=== PATIENT | male | born 1940 | race Caucasian/White ===

== ENCOUNTER 2025-06-03 11:54 | Emergency (ER) | payer MEDICARE, SELFPAY ==
[2025-06-03] VITALS (26 sets, daily range): BP systolic 132–165; BP diastolic 59–84; PULSE 89–125; RESP 13–30; TEMP 36.4; O2SAT 94–100
--- NOTE | ~2025-06-03 | CT_ITS ---
EXAMINATION: CTA chest DATE: 06/03/2025 15:29 INDICATION: Chest tightness. TECHNIQUE: Computed tomographic angiography (CTA) of the chest was performed with 100 mL Omnipaque-350 intravenous contrast. Automated exposure control and iterative reconstruction technique were employed. The dose-length product was 490.08 mGy-cm. Maximum intensity projection 3D-reconstructions of the aorta and other arteries were constructed by the technologist on a separate workstation. COMPARISON: None. FINDINGS: There is mild emphysema. There is mild atelectasis bilaterally. No pleural effusion. The heart size is normal. There are coronary artery calcifications. No pericardial effusion. Aortic atherosclerosis is noted. There is ectasia of ascending aorta measuring 4.5 cm. There is a 4.5 cm fusiform a neurysm of descending thoracic aorta. There is a 4.3 cm fusiform aneurysm of infrarenal aorta. There is no pulmonary embolus. There is bilateral gynecomastia. There are gallstones in the gallbladder, which is normal in size. There is severe atrophy of right kidney. There are cysts in the kidneys measur ing up to 4.2 cm on the left. There is mild chronic anterior wedging of multiple vertebral bodies. There are bridging endplate osteophytes at multiple levels in the spine, consistent with diffuse idiopathic skeletal hyperostosis (DISH). IMPRESSION: 1. 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 2. 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 Reviewed, dictated and finalized at location E.
--- NOTE | ~2025-06-03 | XR_ITS ---
Examination: XR chest 2V Clinical History: CHEST TIGHTNESS SINCE 2AM THIS MORNING Comparison: None Technique: PA and Lateral Findings: Cardiomediastinal silhouette normal size and configuration. Lungs clear. No acute bony abnormality. IMPRESSION: 1. No acute cardiopulmonary findings. Reviewed, dictated and finalized at location R.
--- NOTE | 2025-06-03 11:56 | ECG_ITS ---
Test Date: 2025-06-03 12:03:34 Measurements Intervals [place] Rate: 96 P: 32 GA: 191 QRS: 7 QRSD: 98 T: 52 QT: 330 QTc: 418 Interpretive Statements SINUS RHYTHM WITH OCCASIONAL SUPRAVENTRICULAR PREMATURE COMPLEXES BORDERLINE R WAVE PROGRESSION, ANTERIOR LEADS BASELINE ARTIFACT- I, II, III, AVR, AVL, AVF BORDERLINE ECG No previous ECG available for comparison Electronically Signed On 06-03-2025 16:44:25 CDT by Roman Vasquez D.O.
--- OUTSIDE RECORDS SUMMARY | 2025-06-03 11:56 | XMS_ITS | Clinical Summary ---
Author Organization [facility] Address [address] [place] [phone] Phone Care Team Providers Care Changeover Operator Name Role Phone Juliocesar Hinojosa MD Primary Care Provider [phone] Allergies No known active allergies Medications atorvastatin (LIPITOR) 80 MG tablet 3 9 Active amLODIPine (NORVASC) 10 MG tablet 1 9 Active aspirin 81 MG chewable tablet CHEW AND SWALLOW 1 TABLET(81 MG) BY MOUTH DAILY 8 Active carvedilol (COREG) 6.25 MG tablet TK 1 T PO BID. THIS IS REPLACING METOPROLOL. 0 9 Active tamsulosin (FLOMAX) 0.4 MG 24 hr capsule Take 0.4 mg by mouth 1 (one) time each day 1 Active Active Problems Problem Noted Date Diagnosed Date Chronic kidney disease, stage 3 (moderate) 07/24 Hypertensive chronic kidney disease with stage 1 through stage 4 chronic kidney disease, or unspecified chronic kidney disease 07/24/2018 Mixed hyperlipidemia 07/24/2018 Abdominal aortic aneurysm without rupture 2017 Other abnormal glucose 07/24/2018 Other acute kidney failure 07/24/2018 Coronary arteriosclerosis in [place] artery 06/30 Dyslipidemia 06/30/2018 Mitral valve regurgitation 06/30/2018 Stented coronary artery 06/30/2018 Serum creatinine raised 05/28/2018 Overview (12/18/2020): Last Assessment & Plan: -per [facility] records; pre cath creatinine was 1.3 -Creatinine here 1.31-->1.34--> 1.47-->1.63 today -Likely in the setting of contrast loading during caths -encourage PO intake and hydration -avoid nephrotoxic agents, NSAIDs; do not initiate ACEI Acute ST segment elevation myocardial infarction 05/27/2018 Overview (03/12/2019): Last Assessment & Plan: -Status post balloon angioplasty to the OM that was c/b wire dissection. Repeat cath revealed widely patent OM with no residual stenosis and no other significant lesion requiring intervention; - Trop was 64.74 on admission. -Hep gtt was discontinued today at noon after completion of 48 hours -continue DAPT with ASA 81 mg and ticagrelor 90mg BID (transitioned from cangrelor gtt in the CCU ). - continue high intensity Atorvastatin 80mg daily - BB and ACEi were held 2/2 to bradycardia and possible LIAM in the CCU but metop 6.25 BID started on the floor. -start ACEI once creatinine normalizes -patient can get TTE on his outpatient follow up with his health screener in a week Essential hypertension 05/27/2018 Overview (03/12/2019): Last Assessment & Plan: -continue amlodipine 10mg daily (home dose 7.5 daily) -continue metop 6.25 BID -start ACEi once renal function normalizes; can be started by outpatient health screener Immunizations Immunization Administration Dates Next Due Sars-cov-2, Unspecified 06/04/2021,12/03/2020, Family History Medical History Relation Comments Diabetes mellitus Mother Heart failure Mother Hypertensive disorder Mother Malignant neoplastic disease Mother Kidney disease Neg Hx Kidney stone Neg Hx Relation Status Comments Mother Social History Tobacco Use Types Packs/Day Years Used Date Smoking Tobacco: Former Smokeless Tobacco: Never Comments:Smoking History Pac ks/day: quit - in 1987, < 1 ppd x 20 years Alcohol Use Standard Drinks/Week Comments Yes 0 (1 standard drink = 0.6 oz pur e alcohol) AUDIT-C Answer Date Recorded Frequency of Alcohol Consumption Not on file 11/15/2018 Average Number of Drinks Not on file 019 Frequency of Binge Drinking Daily or almost mercedes y 11/15/2018 Sex and Gender Information Value Date Recorded Sex Assigned at Not on file Legal Sex Male 9:28 AM MST Gender Identity Not on file Sexual Orientation Not on file Last Filed Vital Signs Vital Sign Reading Time Taken Comments Blood Pressure 132/72 06/03/2022 8:39 AM CDT Pulse - - Temperature 36.6 C (97.8 F) 06/03/2022 8:39 AM CDT Respiratory Rate 18 06/03/2022 8:39 AM CDT Oxygen Saturation - - Inhaled Oxygen Concentration - - Weight 102 kg (224 lb) 06/03/2022 8:39 AM CDT Height 190.5 cm (6' 3) 06/03/2022 8:39 AM CDT Body Mass Index 28 06/03/2022 8:39 AM CDT Plan of Treatment Health Maintenance Due Date Last Done Comments Pneumococcal PPSV23/PCV13 65 + Years / Low and Medium Risk (1 of 2 - PCV) 12/17/1991 Influenza Vaccine (#1) 2025 Insurance [facility] MEDICARE Care Teams Changeover Operator Relationship Specialty Start Date End Date Juliocesar Hinojosa MD [address] [place] [phone] PCP - General Family Medicine 11/15/18
--- OUTSIDE RECORDS SUMMARY | 2025-06-03 11:56 | XMS_ITS | Clinical Summary ---
Author Organization [facility] Address [address] [place] [address] Care Team Providers Care Surplus Property Disposal Agent Name Role Phone Juliocesar Burdick MD Primary Care Prov ider Allergies No known active allergies Medications aspirin 81 mg chewable tablet CHEW AND SWALLOW 1 TABLET(81 MG) BY MOUTH DAILY 30 tablet 5 8 Active carvediloL (COREG) 6.25 mg tablet TAKE 1 TABLET BY MOUTH TWICE DAILY. THIS IS REPLACING METOPROLOL. 1 Active tamsulosin (FLOMAX) 0.4 mg extended release capsule Take 1 capsule (0.4 mg total) by mouth daily 1 Active finasteride (PROSCAR) 5 mg tablet Take 1 tablet (5 mg total) by mouth daily 3 Active multivitamin tabletIndicatio ns:Vitamin Deficiency Prevention Take 1 tablet by mouth daily Active atorvastatin (LIPITOR) 80 mg tablet TAKE 1 TABLET(80 MG) BY MOUTH DAILY 90 tablet 3 5 Active amLODIPine (NORVASC) 10 mg tablet TAKE 1 TABLET(10 MG) BY MOUTH DAILY 90 tablet 3 5 Active Active Problems Problem Noted Date Diagnosed Date Coronary artery disease invo lving [place] coronary artery of [place] heart without angina pectoris 06/30/2018 Mitral valve insufficiency 06/30/2018 Presence of stent in coronary artery 06/30/2018 Dyslipidemia 06/30/2018 Elevated serum creatinine 05/28/2018 Assessment & Plan (05/29/2018 1:12 PM CDT): -[facility] records; pre cath creatinine was 1.3 -Creatinine here 1.31-->1.34--> 1.47-->1.63 today -Likely in the setting of contrast loading during caths -encourage PO intake and hydration -avoid nephrotoxic agents, NSAIDs; do not initiate ACEI Assessment & Plan (05/28/2018 1:36 PM CDT): -Unclear baseline; prior records with no mention of kidney disease -Creatinine here 1.31-->1.34--> 1.47 today -Likely in the setting of contrast loading during caths -Adequate hydration with IVF at 30ml/hr -encourage PO intake -avoid nephrotoxic agents; hold ACEi ST elevation myocardial infa rction involving left circumflex coronary artery 05/27/2018 Assessment & Plan (05/29/2018 1:08 PM CDT): -Status post balloon angioplasty to the OM [...] on his outpatient follow up with his employment services director in a week Assessment & Plan (05/28/2018 1:28 PM CDT): -Status post balloon angioplasty to the OM that was c/b wire dissection. Repeat cath revealed widely patent OM with no residual stenosis and no other significant lesion requiring intervention; - Trop was 64.74 on admission. -Hep gtt was discontinued this AM -continue DAPT with ASA 81 mg and ticagrelor 90mg BID (transitioned from cangrelor gtt in the CCU ). - continue high intensity Atorvastatin 80mg daily - BB and ACEi were held 2/2 to bradycardia and possible LIAM. -consider start metop 6.25 BID -start ACEI once creatinine normalizes -f/u TTE Assessment & Plan (05/28/2018 6:26 AM CDT): STEMI with CELESTINA in II, III, aVF, V5, V6. At OSH, loaded with ASA and ticagrelor, taken to [facility] for balloon angioplasty c/b dissection of OM. On repeat LHC at [facility], OM found to be patent, no additional intervention performed. No stents placed. - heparin gtt for 48 hrs - DAPT with aspirin and ticagrelor - Atorvastatin 80 - start low dose metop once bradycardia resolves Essential hypertension 05/27/2018 Assessment & Plan (05/29/2018 1:10 PM CDT): -continue amlodipine 10mg daily (home dose 7.5 daily) -continue metop 6.25 BID -start ACEi once renal function normalizes; can be started by outpatient employment services director Assessment & Plan (05/28/2018 2:56 PM CDT): -Takes amlodipine 7.5mg daily -started on amlodipine 10mg daily -start low dose metop or coreg -start ACEi once renal function normalizes Assessment & Plan (05/27/2018 5:23 PM CDT): Pt measured BP at home this AM 184/80 at onset of CP. Home regimen is amlodipine 7.5mg daily. - start amlodipine 10 - consider hydralizine for short term BP management - Unclear b/l Cr, pt would benefit from ACEi--> will trend Cr Surgical History Surgery Date Site/Laterality Comments REVISION TOTAL HIP ARTHROPLASTY 08/23/2013 - 08/22/2014 Left CATARACT EXTRACTION 08/23/2014 - 08/22/2015 Bilateral TONSILLECTOMY JOINT REPLACEMENT hip replacement February 2014 Medical History Medical History Date Comments Hypertension Hypertension Peripheral vascular disease Daniela pheral vascular disease Hx Other Medical DJD Family History Medical History Relation Name Comments Diabetes Daughter Nikkie Decker Heart attack Daughter Nikkie Decker Heart failure Father Congestive Hea rt Failure; Cause of : Congestive Heart Failure Heart failure Mother Congestive Hea rt Failure; Cause of : Congestive Heart Failure Relation Name Status Comments Daughter Nikkie Decker Father Mother Social History Tobacco Use Types Packs/Day Years Used Date Smoking Tobacco: Former Cigarettes 1 25 Smokeless Tobacco: Never Tobacco Cessation:Counseling Given: Not Answered Alcohol Use Standard Drinks/Week Comments Yes 6 (1 standard drink = 0.6 oz pur e alcohol) Drinks Natural Light Sex and Gender Information Value Date Recorded Sex Assigned at Not on file Legal Sex Male 9:37 PM REGISTERED NURSES Gender Identity Male 10/29/2020 4:07 PM REGISTERED NURSES Sexual Orientation Choose not to disclose 2020 4:07 PM REGISTERED NURSES Obstetrics History Last Filed Vital Signs Vital Sign Reading Time Taken Comments Blood Pressure 134/64 12/01/2024 1:06 PM CDT Pulse 98 12/01/2024 1:06 PM CDT Temperature 37 C (98.6 F) 05/29/2018 11:46 AM CDT Respiratory Rate 18 05/29/2018 11:46 AM CDT Oxygen Saturation 98% 12/01/2024 1:06 PM CDT Inhaled Oxygen Concentration - - Weight 100.7 kg (222 lb) 12/01/2024 1:06 PM CDT Height 188 cm (6' 2) 12/01/2024 1:06 PM CDT Body Mass Index 28.5 12/01/2024 1:06 PM CDT Plan of Treatment Health Maintenance Due Date Last Done Comments Depression Screening 1941 Fall Risk Assessment 1940 DTaP/Tdap/Td Vaccine (1 - Tdap) 1952 Hepatitis B Screening 12/17/1959 Pneumococcal vaccine 65+ (1 of 1 - PCV) 12/17/1991 Zoster Vaccine (1 of 2) 12/17/1991 Well Visit 65+ 2006 Influenza Vaccine (#1) 2025 Insurance [employer] MEDICARE [facility] MEDICARE ADVANTAGE REPLACED BY [facility] MEDICARE Advance Directives For more information, please contact: [phone] * Full Code (Latest Code Status on File) Date Activated Date Inactivated Comments 05/27/2018 12:57 PM 05/29/2018 7:07 PM * Full Code Date Activated Date Inactivated Comments 05/27/2018 12:24 PM 05/27/2018 12:57 PM Care Teams Surplus Property Disposal Agent Relationship Specialty Start Date End Date Juliocesar Burdick MD PCP - General Family Medicine 06/01/18
[2025-06-03 12:15] LABS: Hematocrit 40.8 % (42.0-52.0); Hemoglobin 13.8 g/dL (14.0-18.0); Immature Granulocyte Percent A 0.4 % (0-0.5); Lymphocytes Absolute Auto 1.07 K/mm3 (0.9-3.2); Mean Corpuscular HGB Conc 33.8 g/dl (32-36); Mean Corpuscular Hemoglobin 31.4 pg (26-34); Mean Corpuscular Volume 92.9 fl (80-100); Nucleated Red Blood Cells Absolute Auto 0.000 K/mm3 (0.0-0.012); Nucleated Red Blood Cells Perc 0.0 % (0.0-0.2); Platelet Count Result 229 k/mm3 (150-375); Red Blood Count 4.39 M/mm3 (4.6-6.20); White Blood Count 12.9 K/mm3 (4.5-10.0)
[2025-06-03 12:28] LABS: INR 1.0; Prothrombin Time 13.7 Seconds (11.1-14.7)
[2025-06-03 12:29] LABS: Partial Thromboplastin Time 28.9 Seconds (22.3-36.8)
[2025-06-03 12:34] LABS: Alanine Aminotransferase 15 U/L (6-50); Albumin Level 4.1 g/dL (3.5-5.1); Alkaline Phosphatase 110 U/L (38-126); Anion Gap 11 mmol/L (4-12); Aspartate Amino Transferase 25 U/L (17-59); Bilirubin,Total 0.9 mg/dL (0.2-1.3); Blood Urea Nitrogen 16 mg/dL (9-20); Calcium 8.9 mg/dL (8.4-10.2); Carbon Dioxide 22 mmol/L (22-30); Chloride 98 mmol/L (98-107); Estimated CRCL calculation 36 ml/min; Estimated Glomerular Filt Rate 40; Glucose 127 mg/dL (65-110); Lipase 70 U/L (23-300); Potassium 3.9 mmol/L (3.4-5.0); Sodium 131 mmol/L (137-145); Total Protein 7.7 g/dL (6.3-8.2)
[2025-06-03 12:40] LABS: Troponin I < 0.012 ng/mL (0.000-0.034)
--- OUTSIDE RECORDS SUMMARY | 2025-06-03 14:24 | XMS_ITS | Clinical Summary ---
Author Organization [facility] Address [address] [place] [phone] Phone Care Team Providers Care Training Intern Name Role Phone Juliocesar Hinojosa MD Primary Care Provider [phone]- [phone] Allergies No known active allergies Medications atorvastatin [...] acute kidney failure 07/24/2018 Coronary arteriosclerosis in [place] artery 06/30 Dyslipidemia 06/30/2018 Mitral valve regurgitation [...] on his outpatient follow up with his torch shearer in a week Essential hypertension 05/27/2018 Overview (03/12/2019): Last Assessment & Plan: -continue amlodipine 10mg daily (home dose 7.5 daily) -continue metop 6.25 BID -start ACEi once renal function normalizes; can be started by outpatient torch shearer Immunizations Immunization Administration Dates Next Due Sars-cov-2, [...] PCV) 12/17/1991 Influenza Vaccine (#1) 2025 Insurance [facility] MEDICARE Care Teams Training Intern Relationship Specialty Start Date End Date Juliocesar Hinojosa MD [address] [place] [phone] PCP - General Family Medicine 11/15/18
--- OUTSIDE RECORDS SUMMARY | 2025-06-03 14:25 | XMS_ITS | Clinical Summary ---
Author Organization [facility] Address [address] [place] [address] Care Team Providers Care Arranger Assembler Name Role Phone Juliocesar Burdick MD Primary [...] Diagnosed Date Coronary artery disease invo lving [place] coronary artery of [place] heart without angina pectoris 06/30/2018 Mitral valve insufficiency 06/30/2018 Presence of stent in coronary artery 06/30/2018 Dyslipidemia 06/30/2018 Elevated serum creatinine 05/28/2018 Assessment & Plan (05/29/2018 1:12 PM CDT): -[facility] records; pre cath creatinine was 1.3 [...] on his outpatient follow up with his quiller tender in a week Assessment & Plan (05/28/2018 [...] loaded with ASA and ticagrelor, taken to [facility] for balloon angioplasty c/b dissection of OM. On repeat LHC at [facility], OM found to be patent, no additional [...] function normalizes; can be started by outpatient quiller tender Assessment & Plan (05/28/2018 2:56 PM CDT): [...] on file Legal Sex Male 9:37 PM RESERVES CLERK Gender Identity Male 10/29/2020 4:07 PM RESERVES CLERK Sexual Orientation Choose not to disclose 2020 4:07 PM RESERVES CLERK Obstetrics History Last Filed Vital Signs Vital [...] Influenza Vaccine (#1) 2025 Insurance [employer] MEDICARE [facility] MEDICARE ADVANTAGE [facility] MEDICARE Advance Directives For more information, please contact: [phone] * Full Code (Latest Code Status on File) Date Activated Date Inactivated Comments 05/27/2018 12:57 PM 05/29/2018 7:07 PM * Full Code Date Activated Date Inactivated Comments 05/27/2018 12:24 PM 05/27/2018 12:57 PM Care Teams Arranger Assembler Relationship Specialty Start Date End Date Juliocesar Burdick MD PCP - General Family Medicine 06/01/18
--- NOTE | 2025-06-03 14:26 | ED_ITS ---
HPI - Chest Pain General Chief Complaint: Chest Pain Stated Complaint: CHEST TIGHTNESS Time Seen by Provider: 06/03/25 14:07 History of Present Illness HPI narrative: Pt is an 84-year-old male who presents to the ER with complaints of chest tightness and back pain. He reports his symptoms started around 2:00 a.m. last night. At the time of examination patient reports his symptoms have slightly improved. Patient endorses a history of a heart attack in 2018, chronic kidney disease, chronic cough, and chronic bilateral lower extremity swelling. He denies any shortness of breath, recent fevers, or acute cough. Related Data Home Medications ?Medication ?Instructions ?Recorded ?Confirmed ?Last Taken ?Type aspirin 81 mg tablet,delayed 81 mg PO DAILY 11/10/21 0 05/02/25 Unknown History release (Adult Low Dose Aspirin) atorvastatin 80 mg tablet 80 mg PO DAILY 11/10/2104/23 Unknown History multivitamin (Daily Multi-Vitamin 1 tablet PO DAILY 05/02/25 Unknown History tablet) amlodipine 10 mg tablet 10 mg PO DAILY 02/06/2504/23 Unknown History Allergies Allergy/AdvReac Type Severity Reaction Status Date / Time No Known Allergies Allergy Unknown Verified 06/03/25 11:55 Review of Systems 2 Review of Systems: All systems reviewed & are unremarkable except as noted in HPI and below PMFSH Past Medical History Medical History Hypertension CKD (chronic kidney disease) Benign prostatic hyperplasia with lower urinary tract symptoms Hx of fracture of foot (~1970) Aortic atherosclerosis Surgical History Surgical History History of total left hip arthroplasty 2013 Family History Family History Mother Diabetes mellitus Heart disease Pacemaker Social History Social History Smoking packs per day: 1 Smoking cigarettes per day: 20.0 Years smoked: 25 Smoking pack-years: 25.00 Smoking status: Former smoker Tobacco type: cigarettes Second hand tobacco smoke exposure: No Smoking end date: 08/23/87 Alcohol intake: current Alcohol use details: 4 beers daily Substance use: never Substance use type: does not use Do You Feel Safe in your Home?: Yes Lack of Transportation: No Lack of Food: Never True Current Housing: I Have Housing Concerned About Future Housing: No Difficulty Paying Gas/Electric Bills: No Difficulty Paying for Meds: No Currently Unemployed: No Education: High School Diploma/GED Living arrangements: with family Occupation/Education: retired Gender identity (if verbalized by the patient): Male Sexual Orientation (if Verbalized by the Patient): Straight or Heterosexual Spiritual care concerns: No Agree to blood products: Yes Exam 2 Narrative: GENERAL: Well appearing, well-nourished, non-toxic, in no acute distress. HEAD: Normocephalic, atraumatic. NECK: Supple. No adenopathy, no masses. RESPIRATORY: Airway patent, respirations nonlabored. Clear to auscultation bilaterally, no rales, rhonchi, wheezing. CARDIOVASCULAR: Regular rate and rhythm without murmurs, rubs, or gallops. Peripheral pulses 2+ and equal bilaterally. Mild pitting bilateral lower extremity edema. ABDOMINAL: Soft, nontender, nondistended, no hepatosplenomegaly. Normoactive BS. MUSCULOSKELETAL: Moves all extremities. Strength/ROM intact without gross deformities. SKIN: Warm, dry, normal color. No rashes. NEURO: A&O X3. Speech clear. Cranial nerves II-XII intact. No ataxic movements. PSYCHIATRIC: Appropriate mood and affect. Normal interaction. Course Vital Signs Vital signs: Vital Signs Temperature 36.4 C 06/03/25 11:56 Pulse Rate 95 06/03/25 11:56 Respiratory Rate 20 06/03/25 11:56 Blood Pressure 145/73 H 06/03/25 11:56 Pulse Oximetry 99 06/03/25 11:56 Oxygen Delivery Room Air 06/03/25 11:56 Temperature 36.4 C 06/03/25 11:56 Pulse Rate 97 06/03/25 13:35 Respiratory Rate 23 H 06/03/25 13:35 Blood Pressure 139/71 06/03/25 13:35 Pulse Oximetry 98 06/03/25 13:35 Oxygen Delivery Room Air 06/03/25 11:56 MDM - Chest Pain MDM Narrative Medical decision making narrative: Pt is an 84-year-old male who presents to the ER with complaints of chest tightness and back pain. He reports his symptoms started around 2:00 a.m. last night. At the time of examination patient reports his symptoms have slightly improved. Patient endorses a history of a heart attack in 2018, chronic kidney disease, chronic cough, and chronic bilateral lower extremity swelling. He denies any shortness of breath, recent fevers, or acute cough. Labs Ordered: CBC, CMP, troponin, UA, COVID/flu/RSV, proBNP, PTT, INR, lipase Imaging Ordered: CTA, chest x-ray Medications Ordered: 1 L normal saline IV bolus, Toradol 15 mg IV Results: Patient's CBC indicates white blood cell count of 12.9, red blood cell count of 4.39, hemoglobin of 13.8, hematocrit of 40.8%. His chemistry indicates results similar to previous blood work results, although his sodium was 131. Patient's proBNP was 668. Diagnosis: Musculoskeletal chest strain Risks: HEART score: low risk HEART Score for Major Cardiac Events from [email or web address] on 06/03/2025 All calculations should be rechecked by clinician prior to use RESULT SUMMARY: 4 points Moderate Score (4-6 points) Risk of MACE of 12-16.6%. INPUTS: History ?> 1 = Moderately suspicious EKG ?> 0 = Normal Age ?> 2 = >=5 Risk factors ?> 1 = 1-2 risk factors Initial troponin ?> 0 = <Normal limit Consults: cardiology (outpatient), already established with Dr. Perez Patient Education/Shared MDM: Results of lab work and imaging shared with patient and his . He continues to endorse intermittent mild midsternal chest pain. Patient will be given a dose of Toradol here in the ER prior to discharge. He verbalizes that being in the ER makes his anxiety increase and he would like to be discharged home. He was strongly advised to maintain hydration status upon discharge and follow-up with his PCP and Cardiology as soon as possible. He will not be discharged home with any new prescriptions. Strict return precautions provided. Patient verbalized understanding and is in agreement with plan. Vital signs stable at time of discharge. All questions answered. Differential Diagnosis Differential diagnosis: Likely fracture of rib, atypical chest pain, costochondritis, chest pain and other (GERD, aortic dissection) Lab Data Attestation: I reviewed the patient's lab results. 06/03/25 12:09 06/03/25 12:09 Labs: Lab Results 06/03/25 06/03/25 06/03/25 Range/Units 12:09 14:46 14:46 WBC 12.9 H (4.5-10.0) K/mm3 RBC 4.39 L (4.6-6.20) M/mm3 Hgb 13.8 L (14.0-18.0) g/dL Hct 40.8 L (42.0-52.0) % MCV 92.9 (80-100) fl MCH 31.4 (26-34) pg MCHC 33.8 (32-36) g/dl RDW 14.3 (11.5-14.5) % Plt Count 229 (150-375) k/mm3 MPV 9.6 (7.4-10.4) fl Immature Gran % (Auto) 0.4 (0-0.5) % Neut % (Auto) 78.3 H (45.5-73.1) % Lymph % (Auto) 8.3 L (18.3-44.2) % [place] % (Auto) 12.3 H (2.6-8.5) % Eos % (Auto) 0.4 (0-4.4) % Baso % (Auto) 0.3 (0.2-1.2) % Lymph # (Auto) 1.07 (0.9-3.2) K/mm3 [place] # (Auto) 1.6 H (0.1-0.6) K/mm3 Eos # (Auto) 0.1 (0-0.3) K/mm3 Baso # (Auto) 0.0 (0.0-0.1) K/mm3 Abs Immat Gran (auto) 0.05 H (0.00-0.031) K/mm3 Absolute Neuts (auto) 10.1 H (1.3-6.7) K/mm3 Absolute Nucleated RBC 0.000 (0.0-0.012) K/mm3 Nucleated RBC % 0.0 (0.0-0.2) % PT 13.7 (11.1-14.7) Seconds INR 1.0 APTT 28.9 (22.3-36.8) Seconds Sodium 131 L (137-145) mmol/L Potassium 3.9 (3.4-5.0) mmol/L Chloride 98 (98-107) mmol/L Carbon Dioxide 22 (22-30) mmol/L Anion Gap 11 (4-12) mmol/L BUN 16 (9-20) mg/dL Creatinine 1.64 H (0.7-1.3) mg/dL Estim Creat Clear Calc 36 ml/min Estimated GFR 40 L (59 - ) Glucose 127 H (65-110) mg/dL Calcium 8.9 (8.4-10.2) mg/dL Total Bilirubin 0.9 (0.2-1.3) mg/dL AST 25 (17-59) U/L ALT 15 (6-50) U/L Alkaline Phosphatase 110 (38-126) U/L Troponin I < 0.012 Cancelled < 0.012 (0.000-0.034) ng/mL NT-Pro-B Natriuret Pep 668 H (19.9-100) pg/mL Total Protein 7.7 (6.3-8.2) g/dL Albumin 4.1 (3.5-5.1) g/dL Lipase 70 (23-300) U/L Urine Color (Yellow) Urine Appearance (Clear) Urine pH (5.0-9.0) Ur Specific [place] (1.001-1.035) Urine Protein (Negative) mg/dL Urine Glucose (UA) (Negative) mg/dL Urine Ketones (Negative) mg/dL Ur Blood (Man) (Negative) Urine Nitrate (Negative) Urine Bilirubin (Negative) Urine Urobilinogen (<2.0) mg/dL Leukocyte Esterase Rfl (Negative) JANIE/UL Influenza A (RT-PCR) Negative (Negative) Influenza B (RT-PCR) Negative (Negative) RSV (RT-PCR) Negative (Negative) SARS-CoV-2 RNA (RT-PCR) Negative (Negative) 06/03/25 Range/Units 15:47 WBC (4.5-10.0) K/mm3 RBC (4.6-6.20) M/mm3 Hgb (14.0-18.0) g/dL Hct (42.0-52.0) % MCV (80-100) fl MCH (26-34) pg MCHC (32-36) g/dl RDW (11.5-14.5) % Plt Count (150-375) k/mm3 MPV (7.4-10.4) fl Immature Gran % (Auto) (0-0.5) % Neut % (Auto) (45.5-73.1) % Lymph % (Auto) (18.3-44.2) % [place] % (Auto) (2.6-8.5) % Eos % (Auto) (0-4.4) % Baso % (Auto) (0.2-1.2) % Lymph # (Auto) (0.9-3.2) K/mm3 [place] # (Auto) (0.1-0.6) K/mm3 Eos # (Auto) (0-0.3) K/mm3 Baso # (Auto) (0.0-0.1) K/mm3 Abs Immat Gran (auto) (0.00-0.031) K/mm3 Absolute Neuts (auto) (1.3-6.7) K/mm3 Absolute Nucleated RBC (0.0-0.012) K/mm3 Nucleated RBC % (0.0-0.2) % PT (11.1-14.7) Seconds INR APTT (22.3-36.8) Seconds Sodium (137-145) mmol/L Potassium (3.4-5.0) mmol/L Chloride (98-107) mmol/L Carbon Dioxide (22-30) mmol/L Anion Gap (4-12) mmol/L BUN (9-20) mg/dL Creatinine (0.7-1.3) mg/dL Estim Creat Clear Calc ml/min Estimated GFR (59 - ) Glucose (65-110) mg/dL Calcium (8.4-10.2) mg/dL Total Bilirubin (0.2-1.3) mg/dL AST (17-59) U/L ALT (6-50) U/L Alkaline Phosphatase (38-126) U/L Troponin I (0.000-0.034) ng/mL NT-Pro-B Natriuret Pep (19.9-100) pg/mL Total Protein (6.3-8.2) g/dL Albumin (3.5-5.1) g/dL Lipase (23-300) U/L Urine Color Yellow (Yellow) Urine Appearance Clear (Clear) Urine pH 6.5 (5.0-9.0) Ur Specific [place] 1.012 (1.001-1.035) Urine Protein Negative (Negative) mg/dL Urine Glucose (UA) Negative (Negative) mg/dL Urine Ketones Negative (Negative) mg/dL Ur Blood (Man) Negative (Negative) Urine Nitrate Negative (Negative) Urine Bilirubin Negative (Negative) Urine Urobilinogen 0.2 (<2.0) mg/dL Leukocyte Esterase Rfl Negative (Negative) JANIE/UL Influenza A (RT-PCR) (Negative) Influenza B (RT-PCR) (Negative) RSV (RT-PCR) (Negative) SARS-CoV-2 RNA (RT-PCR) (Negative) Imaging Data Attestation: I personally reviewed and interpreted this imaging study as follows: Radiologist's impression: Impressions Chest X-Ray 06/03/25 12:40 IMPRESSION: 1. No acute cardiopulmonary findings. Chest CTA 06/03/25 15:30 IMPRESSION: 1. 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 2. 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 Discharge Plan Discharge Clinical Impression: Atypical chest pain, History of chronic kidney disease, History of aortic aneurysm Patient Disposition: Home Condition: Stable Instructions: Antibiotic Form, Chest Pain (ED) Additional Instructions: Please return to the ER with any worsening symptoms. Follow-up with primary care provider and your mechanical specialist as soon as possible. Take all medications as prescribed, including regularly scheduled medications. You may take Tylenol for pain control. If the GI cocktail helps relieve your symptoms please consider taking Pepcid at home. Patient Language: Spanish Prescriptions: No Action atorvastatin 80 mg tablet 80 mg PO DAILY aspirin [Adult Low Dose Aspirin] 81 mg tablet,delayed release (DR/EC) 81 mg PO DAILY multivitamin [Daily Multi-Vitamin] Tablet 1 tablet PO DAILY tamsulosin 0.4 mg capsule 0.4 mg PO DAILY Qty: 90 3RF carvedilol 6.25 mg tablet 6.25 mg PO BID Qty: 180 3RF amlodipine 10 mg tablet 10 mg PO DAILY Follow-up/Referrals: Casey Perez MD [Physician, Cardiology] Referral Note: cardiology Juliocesar Burdick MD [Primary Care Provider, [facility]] Time of Disposition: 17:39
[2025-06-03] MEDS: SODIUM CHLORIDE 0.9% IV 1,000 ML 500 ML IV CONT (14:46)
--- NOTE | 2025-06-03 14:48 | ECG_ITS ---
Test Date: 2025-06-03 14:53:01 Measurements Intervals [place] Rate: 93 P: 46 [place]: 201 QRS: 13 QRSD: 104 T: 53 QT: 342 QTc: 426 Interpretive Statements SINUS RHYTHM WITH FREQUENT SUPRAVENTRICULAR PREMATURE COMPLEXES BORDERLINE AV CONDUCTION DELAY DELAYED PRECORDIAL R/S TRANSITION BASELINE ARTIFACT- I, II, III, AVR, AVL, AVF, V1-V6 ABNORMAL ECG Compared to ECG 06/03/2025 12:03:34 No significant changes Electronically Signed On 06-03-2025 16:38:05 CDT by Roman Vasquez D.O.
[2025-06-03 15:17] LABS: NT Pro B Type Natriuretic Pept 668 pg/mL (19.9-100); Troponin I < 0.012 ng/mL (0.000-0.034)
[2025-06-03 15:29] LABS: Influenza A QL RT-PCR Negative (Negative); Influenza B QL RT-PCR Negative (Negative); RSV RNA, RT-PCR Negative (Negative); SARS-CoV-2 RNA PCR Negative (Negative)
[2025-06-03 15:54] LABS: Add Urine Microscopic? NO; Appearance Urine Clear (Clear); Glucose Urine UA Negative (Negative); Leukocyte Esterase Ur Negative LEU/UL (Negative); Nitrate Urine Negative (Negative); Specific Grav Ur 1.012 (1.001-1.035)
[2025-06-03] MEDS: BELLADONNA ALK/PHENOB ELIX 10 ML, MAG HYDROX/ALUMINUM HYD/SIMETH 30 ML, LIDOCAINE 2% VI... PO (17:44)
== END 2025-06-03 18:05 | disposition home or self-care (01) ==
PROVIDERS: Emergency Medicine; Emergency Provider Registered Nurse; PCP Family Medicine Adolescent Medicine
DX: R07.89 Other chest pain (principal); N18.9 Chronic kidney disease, unspecified; I12.9 Hypertensive chronic kidney disease with stage 1 through stage 4 chronic kidney disease, or unspecified chronic kidney disease; I71.23 Aneurysm of the descending thoracic aorta, without rupture; I71.43 Infrarenal abdominal aortic aneurysm, without rupture; Z20.822 Contact with and (suspected) exposure to COVID-19; I25.2 Old myocardial infarction; I70.0 Atherosclerosis of aorta; N40.1 Benign prostatic hyperplasia with lower urinary tract symptoms; Z96.642 Presence of left artificial hip joint; Z87.891 Personal history of nicotine dependence; Z79.82 Long term (current) use of aspirin; Z79.899 Other long term (current) drug therapy; I49.1 Atrial premature depolarization; R94.31 Abnormal electrocardiogram [ECG] [EKG]
CPT/HCPCS: 36415; 71046; 71275; 80053; 81003; 83690; 83880; 84484; 85025; 85610; 85730; 87637; 93005; 96360; 96361; 99284; A9270; J7030; Q9967